=== PATIENT | female | born 1965 | race Caucasian/White ===

== ENCOUNTER 2017-02-01 09:15 | Emergency (ER) | payer OTHER ==
[~2017-02-01] VITALS: Ht 162.6 cm; Wt 76.0 kg
[2017-02-01] MEDS ORDERED: HYDROcodone/APAP 5/325 TABLET ONE (10:24)
[2017-02-01] MEDS ORDERED: KETOROLAC 30 MG/1 ML ONE (10:24)
[2017-02-01] MEDS ORDERED: ASPIRIN 81 MG TABLET CHEW ONE (10:24)
[2017-02-01] MEDS ORDERED: HYDROcodone/APAP 5/325 TABLET PO ONE (10:30)
[2017-02-01] MEDS ORDERED: SODIUM CHLORIDE FLUSH 10ML SYR IVF ONE (10:30)
[2017-02-01] MEDS ORDERED: KETOROLAC 30 MG/1 ML IVPush ONE (10:30)
[2017-02-01] MEDS ORDERED: ASPIRIN 81 MG TABLET CHEW PO ONE (10:30)
[2017-02-01] MEDS ORDERED: ATOR10TA9 PO (10:38)
[2017-02-01] MEDS ORDERED: OMEP40CA6 PO (10:39)
[2017-02-01 10:40] VITALS: BP 113/1
[2017-02-01 10:42] LABS: HEMOGLOBIN 13.1 g/dL (11.7-16.4)
[2017-02-01 10:43] LABS: BLOOD UREA NITROGEN 16 mg/dL (7-18)
[2017-02-01 10:47] LABS: IS PT STATUS REG ER OR PRE ER? YES
== END 2017-02-01 11:52 | disposition home or self-care (01) ==
LOC: ED 11:30
DX: R07.89 Other chest pain (principal); R53.83 Other fatigue; K21.9 Gastro-esophageal reflux disease without esophagitis; Z90.710 Acquired absence of both cervix and uterus
CPT/HCPCS: 36415; 71010; 80048; 82040; 84484; 85025; 93005; 96374; 99285; J1885

== ENCOUNTER 2019-12-28 08:44 | Emergency (ER) | payer OTHER ==
[~2019-12-28] VITALS: Ht 162.6 cm; Wt 78.0 kg
[~2019-12-28 08:44] MED LIST: ATOR10TA9 PO; OMEP40CA42 PO
[2019-12-28 08:55] VITALS: BP 156/86
--- NOTE | 2019-12-28 09:26 | NUR ---
TO ROOM FROM LOBBY. NAD.
[2019-12-28] MEDS ORDERED: DIPHENHYDRAMINE 50 MG/ML, 1ML ONE (10:14)
[2019-12-28] MEDS ORDERED: KETOROLAC 30 MG/1 ML ONE (10:14)
[2019-12-28] MEDS ORDERED: METOCLOPRAMIDE 5 MG/ML, 2ML ONE (10:14)
[2019-12-28 10:17] LABS: BASOPHILS # (AUTO) 0.03 x10^3/uL (0-0.1); BASOPHILS % (AUTO) 1 % (0-1); EOSINOPHILS # (AUTO) 0.11 x10^3/uL (0-0.4); EOSINOPHILS % (AUTO) 3 % (1-7); LYMPHOCYTES # (AUTO) 1.48 x10^3/uL (1-3.4); LYMPHOCYTES % (AUTO) 32 % (22-44); MD NO; MEAN CORPUSCULAR HEMOGLOBIN 29.8 pg (27.0-34.8); MEAN CORPUSCULAR HGB CONC 33.6 g/dL (32.4-35.8); MEAN CORPUSCULAR VOLUME 88.6 fL (80-100); MEAN PLATELET VOLUME 7.6 fL (7.4-10.4); MONOCYTES # (AUTO) 0.34 x10^3/uL (0.2-0.8); MONOCYTES % (AUTO) 8 % (2-9); NEUTROPHILS % (AUTO) 57 % (42-75); PLATELET COUNT 275 x10^3/uL (130-400); RED BLOOD COUNT 4.79 x10^6/uL (3.82-5.3); RED CELL DISTRIBUTION WIDTH 12.9 % (9.6-15.2)
[2019-12-28 10:28] LABS: ALANINE AMINOTRANSFERASE 41 U/L (12-78); ALBUMIN 3.6 g/dL (3.4-5.0); ANION GAP 3 mmol/L (5-15); CALCIUM 8.8 mg/dL (8.5-10.1); CHLORIDE 108 mmol/L (98-107)
[2019-12-28] MEDS ORDERED: DIPHENHYDRAMINE 50 MG/ML, 1ML IVPush ONE (10:30)
[2019-12-28] MEDS ORDERED: METOCLOPRAMIDE 5 MG/ML, 2ML IVPush ONE (10:30)
[2019-12-28] MEDS ORDERED: SODIUM CHLORIDE 0.9% 1,000ML IVBOLUS ONE (10:30)
[2019-12-28] MEDS ORDERED: KETOROLAC 30 MG/1 ML IVPush ONE (10:30)
[2019-12-28 10:33] LABS: ALKALINE PHOSPHATASE 81 U/L (45-117); BILIRUBIN,TOTAL 0.8 mg/dL (0.2-1.0); TOTAL PROTEIN 7.2 g/dL (6.4-8.2); TROPONIN I < 0.015 ng/mL (0.000-0.045)
== END 2019-12-28 12:41 | disposition home or self-care (01) ==
LOC: ED 12:30
DX: G43.019 Migraine without aura, intractable, without status migrainosus (principal); R11.0 Nausea; K21.9 Gastro-esophageal reflux disease without esophagitis
CPT/HCPCS: 36415; 71045; 80053; 84484; 85025; 93005; 96374; 96375; 99285; J1200; J1885; J2765; J7030